=== PATIENT | female | born 2000 | race Caucasian/White ===

== ENCOUNTER 2024-12-15 10:42 | Inpatient (IN) | payer OTHER ==
[~2024-12-15] VITALS: Ht 167.6 cm; Wt 83.5 kg
[2024-12-15] MEDS ORDERED: OXYTOCIN/0.9 % SODIUM CHLORIDE 30 UNITS/500 ML BAG IV SCH (14:45)
[2024-12-16] MEDS ORDERED: OXYTOCIN/0.9 % SODIUM CHLORIDE 500 ML IV SCH ×3 (06:00→14:45)
[2024-12-16] MEDS ORDERED: MAGNESIUM HYDROXIDE/AL HYDROX 30 ML CUP PO PRN ×2 (06:00→14:45)
[2024-12-16] MEDS ORDERED: LACTATED RINGER'S 1,000 ML IV PRN (06:00)
[2024-12-16] MEDS ORDERED: LACTATED RINGER'S 1,000 ML IV SCH (06:00)
[2024-12-16] MEDS ORDERED: CALCIUM CARBONATE 500 MG CHEW PO PRN ×2 (06:00→14:45)
[2024-12-16 06:44] LABS: HEMATOCRIT 41.2 % (35.0-50.0); HEMOGLOBIN 13.9 g/dL (12.0-18.0); MCHC 33.8 g/dl (30-36); MCV 79.8 fl (81-99); RBC 5.16 M/ul (4.3-5.7); RDW 16.4 (10.5-15.0)
[2024-12-16 06:58] VITALS: BP 125/71
[2024-12-16 07:08] LABS: AMPHETAMINES, URINE NEGATIVE (NEGATIVE); BARBITURATES, URINE NEGATIVE (NEGATIVE); BENZODIAZEPINE, URINE NEGATIVE (NEGATIVE); BUPRENORPHINE, URINE NEGATIVE (NEGATIVE); CANNABINOID, URINE NEGATIVE (NEGATIVE); COCAINE, URINE NEGATIVE (NEGATIVE); ECSTASY, URINE NEGATIVE (NEGATIVE); FENTANYL, URINE NEGATIVE (NEGATIVE); METHADONE, URINE NEGATIVE (NEGATIVE); OPIATES, URINE NEGATIVE (NEGATIVE); OXYCODONE, URINE NEGATIVE (NEGATIVE); PHENCYCLIDINE, URINE NEGATIVE (NEGATIVE)
[2024-12-16 07:33] LABS: ABO O; ANTIBODY SCREEN NEGATIVE; RH POSITIVE
[2024-12-16 07:46] LABS: HEMOGLOBIN 10.7 g/dL (12.0-18.0); MCH 26.8 (27-36); MCHC 33.4 g/dl (30-36); MCV 80.3 fl (81-99); RBC 3.99 M/ul (4.3-5.7); RDW 15.9 (10.5-15.0)
[2024-12-16] MEDS ORDERED: ROPIVACAINE 0.2% 200 ML BAG ONE (09:43)
[2024-12-16] MEDS ORDERED: LACTATED RINGER'S 2,000 ML IV ONE (10:30)
[2024-12-16] MEDS ORDERED: LACTATED RINGER'S 500 ML IV PRN (10:30)
[2024-12-16] MEDS ORDERED: ROPIVACAINE 0.2% 200 ML BAG EPIDURAL SCH (10:30)
[2024-12-16] MEDS ORDERED: ePHEDrine sulfate 5 MG/ML SYRINGE IV PRN (10:30)
[2024-12-16] MEDS ORDERED: OXYCODONE/APAP 5/325 TAB PO PRN (14:45)
[2024-12-16] MEDS ORDERED: IBUPROFEN 600 MG TAB PO PRN (14:45)
[2024-12-16] MEDS ORDERED: WITCH HAZEL/GLYCERIN 1 EA PAD TOP PRN (14:45)
[2024-12-16] MEDS ORDERED: BENZOCAINE 60 ML AEROSOL TOP PRN (14:45)
[2024-12-16] MEDS ORDERED: HYDROCODONE/ACETA 5/325 TAB PO PRN (14:45)
[2024-12-16] MEDS ORDERED: MAGNESIUM HYDROXIDE 30 ML UDC PO PRN (14:45)
[2024-12-16] MEDS ORDERED: HYDROCORTISONE ACETATE 25 MG SUPP PR PRN (14:45)
[2024-12-16] MEDS ORDERED: ACETAMINOPHEN 325 MG TAB PO PRN (14:45)
[2024-12-16] MEDS ORDERED: SENNOSIDES/DOCUSATE 1 EA TAB PO SCH (21:00)
[2024-12-17 06:20] LABS: HEMATOCRIT 31.7 % (35.0-50.0); HEMOGLOBIN 10.6 g/dL (12.0-18.0); MCH 26.8 (27-36); MCHC 33.5 g/dl (30-36); MCV 80.2 fl (81-99); RBC 3.95 M/ul (4.3-5.7)
--- NOTE | 2024-12-17 17:40 | PR ---
[facility] [address] [place], [place] [address] Signed PP Progress Notes Datetime Report Generated by CPN: 12/17/2024 17:40 SUBJECTIVE: [id number] Pain: Within Normal Limits Nausea/Vomiting: Denies Flatus: Yes Bowel Movement: No Vital Signs: [id number] Vital Signs: Reviewed; Within Normal Limits Cardiovascular: Normal Respiratory: Normal Abdomen/Uterus: Normal Lochia: Normal Vulva/Perineum: Not Done Breasts: Not Done CVA Tenderness: Normal Extremities: Normal Incision: Not Applicable Progress: Normal Exam Comments: Fundus firm U-2 nontender IMPRESSION/PLAN/PROCEDURES: [id number] Impression: Normal Progression Plan: Discharge Progress Notes: Pt seen and examined. Doing well. Ambulating, voiding, and tolerating full diet. Pain and lochia minimal. well. No fevers/chills or other concerns. Desires d/c home. Reviewed d/c instructions and medications. F/U 2 wk pp visit. Planning vasectomy for pp contraception Signing Physician: Angelo Calle DO Copies: ~ *Electronically Signed* 12/17/24 5883 ANGELO CALLE (MARTY) DO PATIENT NAME: AUDREY SANCHEZ PROGRESS NOTE DATE OF : [birth year] PHYSICIAN: ANGELO CALLE) DO RPT #: [id number] REPORT IS CONFIDENTIAL AND NOT TO BE RELEASED WITHOUT AUTHORIZATION
== END 2024-12-17 17:35 | disposition home or self-care (01) | DRG 807 ==
LOC: FBC 12-16 06:00
PROVIDERS: Obstetrics & Gynecology; ADMIT Obstetrics & Gynecology; ATTEND Obstetrics & Gynecology
PROC: 10E0XZZ Delivery of Products of Conception, External Approach (ICD-10-PCS; principal; 2024-12-16)
PROC: 10907ZC Drainage of Amniotic Fluid, Therapeutic from Products of Conception, Via Natural or Artificial Opening (ICD-10-PCS; 2024-12-16)
PROC: 3E0R3BZ Introduction of Anesthetic Agent into Spinal Canal, Percutaneous Approach (ICD-10-PCS; 2024-12-16)
PROC: 00HU33Z Insertion of Infusion Device into Spinal Canal, Percutaneous Approach (ICD-10-PCS; 2024-12-16)
DX: O24.424 Gestational diabetes mellitus in childbirth, insulin controlled (principal); Z37.0 Single live birth; Z3A.38 38 weeks gestation of pregnancy; Z91.040 Latex allergy status; Z91.048 Other nonmedicinal substance allergy status
CPT/HCPCS: 36415; 80307; 85027; 86850; 86900; 86901; A9270; J7121